=== PATIENT | male | born 1930 | race Caucasian/White ===

== ENCOUNTER 2017-01-15 22:28 | Observation (INO) | payer OTHER ==
[~2017-01-15] VITALS: Ht 165.1 cm; Wt 71.5 kg
--- NOTE | 2017-01-15 23:35 | DIAGNOSTIC IMAGING REPORT ---
PROCEDURE: XR CHEST 1 VIEW INDICATION: CHEST PAIN TECHNIQUE: Portable AP view (2300 hours). COMPARISON: None. FINDINGS: Very large hiatal hernia. Lungs are clear. Status post mediastinotomy and coronary artery bypass graft. Mild cardiomegaly. Mediastinum is of normal size. Thorax is normal IMPRESSION: 1. There are large hiatal hernia. 2. Status post coronary artery bypass graft. 3. Otherwise negative chest.
--- NOTE | 2017-01-15 23:59 | ED NURSING NOTES ---
Clinical Report - Nurses [facility] [address] [place] [address] 01/15/2017 22:30 [id number] Triage time 22:35 Prakash 2016. Acuity: LEVEL 3. Chief Complaint: CHEST PAIN and DISCOMFORT. Alert. FLORI COMA SCORE: Flori Coma Scale: 15- eyes open spontaneously (4); best verbal response- oriented x 4 (5); best motor response- obeys commands (6). --22:49 Jhon Langston R.N. 22:37 01/15/17. BP: 137/73. HR: 74. RR: 16. O2 saturation: 96%. Temp: 96.2 F. Pain level now: 410. Additional comments: Chest Pain. --22:49 Jhon Langston R.N. Weight: 74.8 kg measured. Height/Length: 65 inches Per Patient. BMI: 27.5. --22:41 Jhon Langston R.N. Medications Aspirin Oral (Tablet 81 mg) 1 tablet, daily. --22:38 Jhon Langston R.N. Lisinopril Oral. --22:41 Jhon Langston R.N. Simvastatin Oral. --22:42 Jhon Langston R.N. Omeprazole Oral. Synthroid Oral. --22:42 Jhon Langston R.N. Finasteride Oral. Niacin Oral. --22:43 Jhon Langston R.N. Allergies Quinine. --22:39 Jhon Langston R.N. Medication/allergy information source: the patient. --22:49 Jhon Langston R.N. History Arrived by private vehicle. Historian: patient. Unaccompanied. ( Chest Pain, which started about 3 hours ago). Onset. (about 3 hours ago). 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 PAST MEDICAL HX: Hypertension. Heart disease. Immunizations: up-to-date. SOCIAL HX: Never smoker. No alcohol use or drug use. No infectious disease exposure. ABUSE ASSESSMENT: No report of abuse. FALL RISK ASSESSMENT: Fall risk assessment completed. No fall risk identified. NUTRITIONAL RISK ASSESSMENT: The nutritional risk assessment revealed no deficiencies. FUNCTIONAL ASSESSMENT: Functional assessment: no impairments noted. LEARNING NEEDS ASSESSMENT: The learning needs assessment revealed no barriers. SKIN INTEGRITY ASSESSMENT: Skin integrity risk assessment completed. No skin integrity risk identified. --22:49 Jhon Langston R.N. PROBLEMS: Prostatic Mass. UTI - Urinary Tract Infection. Dysuria. Urinary Retention. Immunizations. Hematuria. Herniated esophagus. Retention of KCl. Hypertension. Prostate Disease. Reflux. --22:46 Jhon Langston R.N. ADDITIONAL SURGERIES: Bypass surgery. Cataract Surgery. Hemorrhoidectomy. Hernia Repair. Removal polyps of colon. --22:46 Jhon Langston R.N. Interventions ID band on patient. To treatment room. --22:49 Jhon Langston R.N. PHYSICAL ASSESSMENT Ambulatory to room. GENERAL / NEURO / PSYCH: Alert. Oriented X 4. Appears in pain. HEENT: Mucous membranes are pink. RESPIRATORY: Respirations not labored. Breath sounds within normal limits. CVS: Normal sinus rhythm noted. GI / : Abdomen soft. EXTREMITIES: No lower extremity edema. SKIN: Skin is warm and dry. Normal skin turgor. --22:50 Jhon Langston R.N. NURSING PROGRESS NOTES Patient gowned. Reassurance given. Patient identifiers checked. Call light placed in reach. Side rails up. Bed placed in lowest position. Brakes of bed on. Patient ready for evaluation- chart flagged and ED physician notified. --22:50 Jhon Langston R.N. 22:36 01/15/2017 Aspirin PO Tablets 325 mg given. Allergies verified and confirmed 5 rights. --22:51 Jhon Langston R.N. 22:46 01/15/2017 Site #1 started via IV in the right forearm with an 20g angiocath; one attempt. Blood drawn: rainbow set. Labeled in the presence of the patient. Saline lock flushed with 10 mL saline. --22:51 Jhon Langston R.N. 22:53 01/15/2017 Nitroglycerin SL Tablets 0.4 mg given. Allergies verified and confirmed 5 rights. --22:53 Jhon Langston R.N. 22:37. EKG was performed by a tech and shown to the ED physician. --22:58 Marika Ferrer, ER Tech1 23:34 01/15/17. BP: 104/54. HR: 68. RR: 16. O2 saturation: 98% on nasal cannula at 2 liters/minute. Pain level now: 0/10. --23:35 Jhon Langston R.N. 00:13 01/16/2017 NITROGLYCERIN PASTE Topical Paste 0.5 inch. Applied to the left chest. Allergies verified and confirmed 5 rights. --00:13 Jhon Langston R.N. 00:30 01/16/17. BP: 105/54. HR: 53. RR: 18. O2 saturation: 98% on nasal cannula at 2 liters/minute. Pain level now: 0/10. --04:59 Jhon Langston R.N. 00:45 01/16/2017 Site #[address] upon admission; patent, no pain and no signs of infection or infiltration. Good blood return present. Converted to saline lock and flushed; flushes easily. --05:01 Jhon Langston R.N. DISPOSITION / DISCHARGE 00:31 01/16/17. BP: 105/54. HR: 52. RR: 16. O2 saturation: 98% on nasal cannula at 2 liters/minute. Pain level now: 0/10. --00:32 Jhon Langston R.N. Departure time: 44. --00:40 Jhon Langston R.N. Admitted to Acute Care. --04:17 Jhon Langston R.N. 00:31 01/16/17. Temp: 98.7 F (oral). --04:17 Jhon Langston R.N. 00:45. Transported via stretcher by transport team with monitor and O2 (IV access). Report was given to a nurse via a phone call. Report included patient's care, treatment, medications, reviewed medication reconcilliation, and condition (including any recent changes or anticipated changes). All questions were answered. Report was acknowledged and care was transferred. Patient's personal items; items were placed in belongings bag and transported with the patient. --04:19 Jhon Langston R.N. Locked/Released at 01/16/2017 5:02 by Jhon Langston R.N.
--- NOTE | 2017-01-15 23:59 | ED CLINICAL REPORT ---
Clinical Report - Physicians/Mid Levels [facility] [address] [place] [address] 01/15/2017 22:30 Patient: BLU STARK Time Seen: 22:42 Prakash 18 2016. Arrived- By private vehicle. Historian- patient. CPT: ER phys charges level 5 plus (#[id number]). EKG interpretation (#[id number]). HISTORY OF PRESENT ILLNESS Chief Complaint: CHEST PAIN and DISCOMFORT. At its maximum, severity described as moderate and 4 / 10. When seen in the E.D., severity described as moderate and 4 / 10. Modifying factors. Not worsened by anything. Not relieved by anything. It is described as pressure and dull and it is described as located in the central chest area. 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 Onset during light activity. No nausea, vomiting, difficulty breathing or diaphoresis. Similar symptoms previously: None. Recent medical care: Not recently seen/assessed. REVIEW OF SYSTEMS No fever, chills, cough, pedal edema or calf pain. No fainting episodes or episodes, sore throat or throat or abdominal pain. No black stools, difficulty with urination or urination or skin rash or rash. No enlarged lymph nodes, chills, fever, nasal congestion or epistaxis. No palpitations or dizziness. The patient has had fatigue and weakness. No difficulty walking. All systems otherwise negative, except as recorded above. PAST HISTORY Hiatal hernia CABG 2000, no SL NTG since that time. NO ETT in last 3 years. Medications: Finasteride Oral. Niacin Oral. Omeprazole Oral. Synthroid Oral. Simvastatin Oral. Lisinopril Oral. Aspirin Oral (Tablet 81 mg) 1 tablet, daily. Allergies: Quinine. SOCIAL HISTORY Never smoker. ADDITIONAL NOTES The nursing notes have been reviewed. PHYSICAL EXAM Vital Signs: 01/15/2017 22:37 BP: 137/73. HR: 74. RR: 16. O2 saturation: 96%. Temp: 96.2 F. Pain level now: 4/10. Appearance: Alert. Anxious. Patient in mild distress. Eyes: Pupils equal, round and reactive to light. Eyes normal inspection. ENT: Ears normal. Nose normal. Pharynx normal. Neck: Normal inspection. Neck supple. CVS: Normal heart rate and rhythm. Heart sounds normal. Pulses normal. Respiratory: No respiratory distress. Breath sounds normal. Chest nontender. Abdomen: Soft and nontender. Bowel sounds normal. Back: Normal external inspection. Skin: Skin warm. Normal skin color. No rash. Extremities: Extremities exhibit normal ROM. No lower extremity edema. Neuro: Oriented X 3. No motor deficit. No sensory deficit. LABS, X-RAYS, AND EKG EKG: Normal sinus rhythm. Normal P waves. RBBB. Non-specific ST segment / T wave abnormalities. EKG unchanged when compared with prior EKG. The study has been interpreted contemporaneously. The study has been independently viewed by me. The EKG appears to be a good tracing. Chest X-ray: No acute disease. (Large hiatal hernia). Views: AP (portable). Technique: good. The X-rays were independently viewed by me and interpreted contemporaneously by me. Laboratory Tests: CBC w Diff: (DAI: 01/15/2017 22:40) ( [facility] 01/15/2017 23:10) Final results Test Result Flag Units (Reference) WHITE BLOOD COUNT 6.7 K/uL (4.5-11.5) RED BLOOD COUNT 5.01 M/uL (4.50-5.90) HEMOGLOBIN 14.7 gm/dL (13.5-17.5) HEMATOCRIT 44.6 % (41.0-53.0) MEAN CELL VOLUME 89 fL (80-100) MEAN CORPUSCULAR HGB 29 pg (26-34) MEAN CORPUSCULAR HGB CONC 33 g/dL (31-37) RED CELL DISTRIBUTION WIDTH 13.4 % (11.6-14.8) PLATELET COUNT 153 K/uL (150-400) LYMPH % 31.0 % (25-40) MONO % 5.9 % (3-14) GRANULOCYTE % 63.1 BNP: (DAI: 01/15/2017 22:40) ( [facility] 01/15/2017 23:34) Final results Test Result Flag Units (Reference) B-TYPE NATRIURETIC PEPTIDE 111 H pg/ml (5-100) Lipase: (DAI: 01/15/2017 22:40) ( [facility] 01/15/2017 23:24) Final results Test Result Flag Units (Reference) LIPASE 350 U/L (73-393) AMYLASE 54 U/L (25-115) CHEM 13 PANEL: (DAI: 01/15/2017 22:40) ( MsgRcvd 01/15/2017 23:26) Final results Test Result Flag Units (Reference) GLUCOSE 121 H mg/dL (70-110) BUN 46 H mg/dL (7-18) CREATININE 1.5 H mg/dL (0.6-1.3) Estimated GFR 46.84 mL/min Estimated GFR- 56.76 mL/min Note: Persistent reduction over 3 months in eGFR<60 mL/min/1.73 m2 defines CKD. Patients with eGFR values>=60 mL/min/1.73 m2 may also have CKD if evidence ofpersistent proteinuria. Additional information may be foundat www.kidney.org. SODIUM 132 L mmol/L (136-145) POTASSIUM 4.6 mmol/L (3.5-5.1) CHLORIDE 103 mmol/L (98-107) CARBON DIOXIDE 24 mmol/L (21-32) CALCIUM 8.8 mg/dL (8.5-10.1) TOTAL PROTEIN 7.7 g/dL (6.4-8.2) ALBUMIN 3.8 g/dL (3.3-5.0) BILIRUBIN, TOTAL 0.4 mg/dL (0.0-1.0) ALKALINE PHOSPHATASE 82 U/L (46-116) AST (SGOT) 27 U/L (15-37) ALT (SGPT) 40 U/L (12-78) MAGNESIUM 2.1 mg/dL (1.8-2.4) CPK 209 U/L (24-260) TROPONIN I <0.05 L ng/mL (0.00-1.5) TROPONIN REFERENCE RANGE:<0.1 NEGATIVE0.1-1.5 INDETERMINANT>1.5 POSITIVE . PROGRESS AND PROCEDURES Course of Care: ASA 325 mg po 23:43 01/15/17. Symptom free after 1 NTG SL. NTG paste 08/01 " Patient is stable. The patient's symptoms are now gone. Discussed case with on-call health care provider, (Bryan). Reviewed test results. Agreed upon treatment plan and decision to admit. Health care provider will see patient in ED. Patient/family counseled. Old medical records ordered. Disposition orders written. Disposition: Admitted to Acute Care. CLINICAL IMPRESSION Unstable angina .12 lead EKG performed. (Electronically signed by Yamil Laughlin MD 01/16/2017 9:49)
--- NOTE | 2017-01-15 23:59 | ED CLINICAL REPORT ---
Clinical Report - Physicians/Mid Levels [facility] [address] [place] [address] 01/15/2017 22:30 Patient: BLU STARK Time Seen: 22:42 Prakash 18 2016. Arrived- By private vehicle. Historian- patient. CPT: ER phys charges level 5 plus (#[id number]). EKG interpretation (#[id number]). HISTORY OF PRESENT ILLNESS Chief Complaint: CHEST PAIN and DISCOMFORT. At its maximum, severity described as moderate and 4 / 10. When seen in the E.D., severity described as moderate and 4 / 10. Modifying factors. Not worsened by anything. Not relieved by anything. It is described as pressure and dull and it is described as located in the central chest area. 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 Onset during light activity. No nausea, vomiting, difficulty breathing or diaphoresis. Similar symptoms previously: None. Recent medical care: Not recently seen/assessed. REVIEW OF SYSTEMS No fever, chills, cough, pedal edema or calf pain. No fainting episodes or episodes, sore throat or throat or abdominal pain. No black stools, difficulty with urination or urination or skin rash or rash. No enlarged lymph nodes, chills, fever, nasal congestion or epistaxis. No palpitations or dizziness. The patient has had fatigue and weakness. No difficulty walking. All systems otherwise negative, except as recorded above. PAST HISTORY Hiatal hernia CABG 2000, no SL NTG since that time. NO ETT in last 3 years. Medications: Finasteride Oral. Niacin Oral. Omeprazole Oral. Synthroid Oral. Simvastatin Oral. Lisinopril Oral. Aspirin Oral (Tablet 81 mg) 1 tablet, daily. Allergies: Quinine. SOCIAL HISTORY Never smoker. ADDITIONAL NOTES The nursing notes have been reviewed. PHYSICAL EXAM Vital Signs: 01/15/2017 22:37 BP: 137/73. HR: 74. RR: 16. O2 saturation: 96%. Temp: 96.2 F. Pain level now: 4/10. Appearance: Alert. Anxious. Patient in mild distress. Eyes: Pupils equal, round and reactive to light. Eyes normal inspection. ENT: Ears normal. Nose normal. Pharynx normal. Neck: Normal inspection. Neck supple. CVS: Normal heart rate and rhythm. Heart sounds normal. Pulses normal. Respiratory: No respiratory distress. Breath sounds normal. Chest nontender. Abdomen: Soft and nontender. Bowel sounds normal. Back: Normal external inspection. Skin: Skin warm. Normal skin color. No rash. Extremities: Extremities exhibit normal ROM. No lower extremity edema. Neuro: Oriented X 3. No motor deficit. No sensory deficit. LABS, X-RAYS, AND EKG EKG: Normal sinus rhythm. Normal P waves. RBBB. Non-specific ST segment / T wave abnormalities. EKG unchanged when compared with prior EKG. The study has been interpreted contemporaneously. The study has been independently viewed by me. The EKG appears to be a good tracing. Chest X-ray: No acute disease. (Large hiatal hernia). Views: AP (portable). Technique: good. The X-rays were independently viewed by me and interpreted contemporaneously by me. Laboratory Tests: CBC w Diff: (DAI: 01/15/2017 22:40) ( [facility] 01/15/[facility] 23:10) Final results Test Result Flag Units (Reference) WHITE BLOOD COUNT 6.7 K/uL (4.5-11.5) RED BLOOD COUNT 5.01 M/uL (4.50-5.90) HEMOGLOBIN 14.7 gm/dL (13.5-17.5) HEMATOCRIT 44.6 % (41.0-53.0) MEAN CELL VOLUME 89 fL (80-100) MEAN CORPUSCULAR HGB 29 pg (26-34) MEAN CORPUSCULAR HGB CONC 33 g/dL (31-37) RED CELL DISTRIBUTION WIDTH 13.4 % (11.6-14.8) PLATELET COUNT 153 K/uL (150-400) LYMPH % 31.0 % (25-40) MONO % 5.9 % (3-14) GRANULOCYTE % 63.1 BNP: (DAI: 01/15/2017 22:40) ( [facility] 01/15/2017 23:34) Final results Test Result Flag Units (Reference) B-TYPE NATRIURETIC PEPTIDE 111 H pg/ml (5-100) Lipase: (DAI: 01/15/2017 22:40) ( Ndg[facility]cv[facility] 01/15/2017 23:24) Final results Test Result Flag Units (Reference) LIPASE 350 U/L (73-393) AMYLASE 54 U/L (25-115) CHEM 13 PANEL: (DAI: 01/15/2017 22:40) ( MsgRcvd 01/15/2017 23:26) Final results Test Result Flag Units (Reference) GLUCOSE 121 H mg/dL (70-110) BUN 46 H mg/dL (7-18) CREATININE 1.5 H mg/dL (0.6-1.3) Estimated GFR 46.84 mL/min Estimated GFR- 56.76 mL/min Note: Persistent reduction over 3 months in eGFR<60 mL/min/1.73 m2 defines CKD. Patients with eGFR values>=60 mL/min/1.73 m2 may also have CKD if evidence ofpersistent proteinuria. Additional information may be foundat www.kidney.org. SODIUM 132 L mmol/L (136-145) POTASSIUM 4.6 mmol/L (3.5-5.1) CHLORIDE 103 mmol/L (98-107) CARBON DIOXIDE 24 mmol/L (21-32) CALCIUM 8.8 mg/dL (8.5-10.1) TOTAL PROTEIN 7.7 g/dL (6.4-8.2) ALBUMIN 3.8 g/dL (3.3-5.0) BILIRUBIN, TOTAL 0.4 mg/dL (0.0-1.0) ALKALINE PHOSPHATASE 82 U/L (46-116) AST (SGOT) 27 U/L (15-37) ALT (SGPT) 40 U/L (12-78) MAGNESIUM 2.1 mg/dL (1.8-2.4) CPK 209 U/L (24-260) TROPONIN I <0.05 L ng/mL (0.00-1.5) TROPONIN REFERENCE RANGE:<0.1 NEGATIVE0.1-1.5 INDETERMINANT>1.5 POSITIVE . PROGRESS AND PROCEDURES Course of Care: ASA 325 mg po 23:43 01/15/17. Symptom free after 1 NTG SL. NTG paste 08/01 " Patient is stable. The patient's symptoms are now gone. Discussed case with on-call health care provider, (Bryan). Reviewed test results. Agreed upon treatment plan and decision to admit. Health care provider will see patient in ED. Patient/family counseled. Old medical records ordered. Disposition orders written. Disposition: Admitted to Acute Care. CLINICAL IMPRESSION Unstable angina .12 lead EKG performed. (Electronically signed by aYmil Laughlin MD 01/16/2017 9:49)
--- NOTE | 2017-01-15 23:59 | ED ORDER SUMMARY ---
..... Patient: BLU STARK OrderSheet [facility] VisitID: [id number] [place] [address] 87y, M Registration Date/Time: 01/15/2017 ORDER SHEET Weight: 74.8 kg (measured) Allergies: Quinine GENERAL ORDERS: Chest 1V Urgent (22:48 01/15/2017 Anil EAST) (Ack 22:50 AMcQuoid ER Tech1) (22:57 AMcQuoid ER Tech1) Founder And President (Continuous) (22:48 01/15/2017 Anil EAST) (Ack 22:50 AMcQuoid ER Tech1) (22:50 AMcQuoid ER Tech1) Cardiac Panel Stat (22:49 01/15/2017 Anil EAST) (Ack 22:50 AMcQuoid ER Tech1) (22:51 omanelli R.N.) BNP Urgent (22:49 01/15/2017 Anil EAST) (Ack 22:50 AMcQuoid ER Tech1) (22:51 JRomanelli R.N.) Lipase Urgent (22:49 01/15/2017 Anil EAST) (Ack 22:50 AMcQuoid ER Tech1) (22:51 JRomanelli R.N.) Amylase Urgent (22:49 01/15/2017 Anil EAST) (Ack 22:50 AMcQuoid ER Tech1) (22:51 JRomanelli R.N.) Oxygen (2 L/min) (NC) (22:49 01/15/2017 Anil EAST) (Ack 22:50 AMcQuoid ER Tech1) (22:50 AMcQuoid ER Tech1) Pulse oximeter (22:49 01/15/2017 Anil EAST) (Ack 22:50 AMcQuoid ER Tech1) (22:50 AMcQuoid ER Tech1) EKG - ER Stat (22:49 01/15/2017 Anil EAST) (Ack 22:50 AMcQuoid ER Tech1) (22:50 AMcQuoid ER Tech1) MEDICATION ORDERS: Aspirin PO 325 mg (NOW) (22:49 01/15/2017 Anil EAST) (22:51 Andreina Carrillo.NSimon) NitroGLYCERIN SL 0.4 mg (x3 PRN Chest Pain) (22:49 01/15/2017 Anil EAST) (22:53 Andreina Carrillo.N.) NitroGLYCERIN Paste Topical 0.5 in. (NOW) (23:51 01/15/2017 Anil EAST) (0:13 Andreina Carrillo.N.) IV FLUIDS: IV Saline Lock (22:49 01/15/2017 Anil EAST) (22:51 Andreina Carrillo.N.) ORDER SHEET NOTES: [Electronically signed by Jhon Langston R.N. (05:02 01/16/2017)] [Electronically signed by Yamil Laughlin MD (09:49 01/16/2017)] [Electronically locked/signed by Jhon Langston R.N. (05:02 01/16/2017)]
--- NOTE | 2017-01-15 23:59 | ED NURSING NOTES ---
Clinical Report - Nurses [facility] [address] [place] [address] 01/15/2017 22:30 [id number] Triage time 22:35 Prakash 2016. Acuity: LEVEL 3. Chief Complaint: CHEST PAIN and DISCOMFORT. Alert. FLORI COMA SCORE: Flori Coma Scale: 15- eyes open spontaneously (4); best verbal response- oriented x 4 (5); best motor response- obeys commands (6). --22:49 Jhon Langston R.N. 22:37 01/15/17. BP: 137/73. HR: 74. RR: 16. O2 saturation: 96%. Temp: 96.2 F. Pain level now: 410. Additional comments: Chest Pain. --22:49 Jhon Langston R.N. Weight: 74.8 kg measured. Height/Length: 65 inches Per Patient. BMI: 27.5. --22:41 Jhon Langston R.N. Medications Aspirin Oral (Tablet 81 mg) 1 tablet, daily. --22:38 Jhon Langston R.N. Lisinopril Oral. --22:41 Jhon Langston R.N. Simvastatin Oral. --22:42 Jhon Langston R.N. Omeprazole Oral. Synthroid Oral. --22:42 Jhon Langston R.N. Finasteride Oral. Niacin Oral. --22:43 Jhon Langston R.N. Allergies Quinine. --22:39 Jhon Langston R.N. Medication/allergy information source: the patient. --22:49 Jhon Langston R.N. History Arrived by private vehicle. Historian: patient. Unaccompanied. ( Chest Pain, which started about 3 hours ago). Onset. (about 3 hours ago). 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 PAST MEDICAL HX: Hypertension. Heart disease. Immunizations: up-to-date. SOCIAL HX: Never smoker. No alcohol use or drug use. No infectious disease exposure. ABUSE ASSESSMENT: No report of abuse. FALL RISK ASSESSMENT: Fall risk assessment completed. No fall risk identified. NUTRITIONAL RISK ASSESSMENT: The nutritional risk assessment revealed no deficiencies. FUNCTIONAL ASSESSMENT: Functional assessment: no impairments noted. LEARNING NEEDS ASSESSMENT: The learning needs assessment revealed no barriers. SKIN INTEGRITY ASSESSMENT: Skin integrity risk assessment completed. No skin integrity risk identified. --22:49 Jhon Langston R.N. PROBLEMS: Prostatic Mass. UTI - Urinary Tract Infection. Dysuria. Urinary Retention. Immunizations. Hematuria. Herniated esophagus. Retention of KCl. Hypertension. Prostate Disease. Reflux. --22:46 Jhon Langston R.N. ADDITIONAL SURGERIES: Bypass surgery. Cataract Surgery. Hemorrhoidectomy. Hernia Repair. Removal polyps of colon. --22:46 Jhon Langston R.N. Interventions ID band on patient. To treatment room. --22:49 Jhon Langston R.N. PHYSICAL ASSESSMENT Ambulatory to room. GENERAL / NEURO / PSYCH: Alert. Oriented X 4. Appears in pain. HEENT: Mucous membranes are pink. RESPIRATORY: Respirations not labored. Breath sounds within normal limits. CVS: Normal sinus rhythm noted. GI / : Abdomen soft. EXTREMITIES: No lower extremity edema. SKIN: Skin is warm and dry. Normal skin turgor. --22:50 Jhon Langston R.N. NURSING PROGRESS NOTES Patient gowned. Reassurance given. Patient identifiers checked. Call light placed in reach. Side rails up. Bed placed in lowest position. Brakes of bed on. Patient ready for evaluation- chart flagged and ED physician notified. --22:50 Jhon Langston R.N. 22:36 01/15/2017 Aspirin PO Tablets 325 mg given. Allergies verified and confirmed 5 rights. --22:51 Jhon Langston R.N. 22:46 01/15/2017 Site #1 started via IV in the right forearm with an 20g angiocath; one attempt. Blood drawn: rainbow set. Labeled in the presence of the patient. Saline lock flushed with 10 mL saline. --22:51 Jhon Langston R.N. 22:53 01/15/2017 Nitroglycerin SL Tablets 0.4 mg given. Allergies verified and confirmed 5 rights. --22:53 Jhon Langston R.N. 22:37. EKG was performed by a tech and shown to the ED physician. --22:58 Marika Ferrer, ER Tech1 23:34 01/15/17. BP: 104/54. HR: 68. RR: 16. O2 saturation: 98% on nasal cannula at 2 liters/minute. Pain level now: 0/10. --23:35 Jhon Langston R.N. 00:13 01/16/2017 NITROGLYCERIN PASTE Topical Paste 0.5 inch. Applied to the left chest. Allergies verified and confirmed 5 rights. --00:13 Jhon Langston R.N. 00:30 01/16/17. BP: 105/54. HR: 53. RR: 18. O2 saturation: 98% on nasal cannula at 2 liters/minute. Pain level now: 0/10. --04:59 Jhon Langston R.N. 00:45 01/16/2017 Site #[address] upon admission; patent, no pain and no signs of infection or infiltration. Good blood return present. Converted to saline lock and flushed; flushes easily. --05:01 Jhon Langston R.N. DISPOSITION / DISCHARGE 00:31 01/16/17. BP: 105/54. HR: 52. RR: 16. O2 saturation: 98% on nasal cannula at 2 liters/minute. Pain level now: 0/10. --00:32 Jhon Langston R.N. Departure time: 44. --00:40 Jhon Langston R.N. Admitted to Acute Care. --04:17 Jhon Langston R.N. 00:31 01/16/17. Temp: 98.7 F (oral). --04:17 Jhon Langston R.N. 00:45. Transported via stretcher by transport team with monitor and O2 (IV access). Report was given to a nurse via a phone call. Report included patient's care, treatment, medications, reviewed medication reconcilliation, and condition (including any recent changes or anticipated changes). All questions were answered. Report was acknowledged and care was transferred. Patient's personal items; items were placed in belongings bag and transported with the patient. --04:19 Jhon Langston R.N. Locked/Released at 01/16/2017 5:02 by Jhon Langston R.N.
--- NOTE | 2017-01-15 23:59 | ED ORDER SUMMARY ---
..... Patient: BLU STARK OrderSheet [facility] VisitID: [id number] [place] [address] 87y, M Registration Date/Time: 01/15/2017 ORDER SHEET Weight: 74.8 kg (measured) Allergies: Quinine GENERAL ORDERS: Chest 1V Urgent (22:48 01/15/2017 [facility]) (Ack 22:50 AMcQuoid ER Tech1) (22:57 AMcQuoid ER Tech1) Rn Home Health (Continuous) (22:48 01/15/2017 [facility]) (Ack 22:50 AMcQuoid ER Tech1) (22:50 AMcQuoid ER Tech1) Cardiac Panel Stat (22:49 01/15/2017 [facility]) (Ack 22:50 AMcQuoid ER Tech1) (22:51 omanelli R.N.) BNP Urgent (22:49 01/15/2017 [facility]) (Ack 22:50 AMcQuoid ER Tech1) (22:51 JRomanelli R.N.) Lipase Urgent (22:49 01/15/2017 [facility]) (Ack 22:50 AMcQuoid ER Tech1) (22:51 JRomanelli R.N.) Amylase Urgent (22:49 01/15/2017 [facility]) (Ack 22:50 AMcQuoid ER Tech1) (22:51 JRomanelli R.N.) Oxygen (2 L/min) (NC) (22:49 01/15/2017 [facility]) (Ack 22:50 AMcQuoid ER Tech1) (22:50 AMcQuoid ER Tech1) Pulse oximeter (22:49 01/15/2017 [facility]) (Ack 22:50 AMcQuoid ER Tech1) (22:50 AMcQuoid ER Tech1) EKG - ER Stat (22:49 01/15/2017 [facility]) (Ack 22:50 AMcQuoid ER Tech1) (22:50 AMcQuoid ER Tech1) MEDICATION ORDERS: Aspirin PO 325 mg (NOW) (22:49 01/15/2017 [facility]) (22:51 Andreina Carrillo.NSimon) NitroGLYCERIN SL 0.4 mg (x3 PRN Chest Pain) (22:49 01/15/2017 [facility]) (22:53 Andreina Carrillo.N.) NitroGLYCERIN Paste Topical 0.5 in. (NOW) (23:51 01/15/2017 [facility]) (0:13 Andreina Carrillo.N.) IV FLUIDS: IV Saline Lock (22:49 01/15/2017 [facility]) (22:51 Andreina Carrillo.N.) ORDER SHEET NOTES: [Electronically signed by Jhon Langston R.N. (05:02 01/16/2017)] [Electronically signed by Yamil Laughlin MD (09:49 01/16/2017)] [Electronically locked/signed by Jhon Langston R.N. (05:02 01/16/2017)]
[2017-01-16 01:15] VITALS: BP 100/52
--- NOTE | 2017-01-16 02:06 | Progress Note ---
Subjective General Admission History and Physical Examination Status: Acute Care Observation Patient Name: Brayden Macario Admission Date: Primary Care Provider: Quintin Prather Attending Physician: Barrett Alexander M.D. Admitting Physician: Robe Adams Code Status: Full Code Room: 209 SUBJECTIVE Historian: Patient Reliability: good Chief Complaint: Mid Sternal Chest pain/pressure History of Present Illness: The patient is an 87-year-old white male with a significant past medical history of CAD (4 Vsl CABG 2000 and angioplasty 2000), hypertension, hyperlipidemia, BPH who presented to [facility] emergency department on the day of admission secondary to complaints of chest pain.. Patient reported of initial pain in the chest nearly 3 hours prior to his arrival to the ED.He states that he actually drove himself to the hospital due the ongoing chest pain The [facility] ED evaluation was consistent with acute coronary syndrome. Patient received nitroglycerin sublingual during the subsequent evaluations which gave significant relief.. Labs were relatively unremarkable. Patient is admitted for ACS to the hospitalist. He reports that the nitroglycerin was therapeutic. Patient no longer complaining of chest pain. Secondary to the above the patient is admitted by Robe Adams M.D., for further evaluation and treatment. Patient does report of mild cognitive decline; claiming that he now takes more time to remember certain names or places.. He is independant at home. Patient has been for multiple years. 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 Patient normally drives himself to most destinations. Patient does have 2 family members nearby. Patient has daughter and son in close proximity. 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 Patient reports that he would wish to BE fully resuscitated. All subsequent discussions should go through his son. Patient has his record on file. PAST MEDICAL HISTORY Illnesses: 1 . Hypertension 2 BPH with istory of urinary retention. 3. Hyperlipidemia 4. Coronary artery disease. Allergies: 1. Quinine Medications: 1. Lisinopril 20 mg daily 2. Simvastatin 40 mg daily 3. Omeprazole 20 mg 1 tablet twice daily 4. Synthroid 50 g 1 times daily 5. Finasteride 5 mg 1 time daily 6. Low-dose aspirin daily health 7. Niacin 500 mg held Surgery: 1. Four-vessel CABG in 2000 2. Hemorrhoidectomy 3. Right inguinal hernia surgical repair 4. Colonoscopy next 5. Angioplasty Injuries: 1. No significant injuries reported Hospitalizations: 1. Previous hospitalizations for above noted procedure and conditions. FAMILY HISTORY Parents: 1. Father, coronary artery disease mid 50s, 2. Mother, coronary artery disease mid 50s Siblings: 1. Brother is living Children: 1. Adopted children Other significant family history: CAD SOCIAL HISTORY 1. Marital Status: 2. Yarsanism: Not asked 3. Education: High school and college education 4. 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 Occupational health exposures: Unknown HABITS 1. Tobacco: History of smoking 2. Drugs: None 3. Alcohol: No alcohol use since 1990 HEALTH SUPERVISION Item/Test Dr. Reyes's records from [facility] IMMUNIZATIONS: 1. Pneumococcal: up to date 2. Influenza: uknown 3. Tetanus: uknown. ADVANCED DIRECTIVES: 1. Living well: Available in 2. POLST: None 3. Code Status: Full code 4. 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 Patient wants his son to be called if there is a loss of consciousness or changes in mental status 5. Donor card: Unknown REVIEW OF SYSTEMS Remarkable for those things stated in the history of present illness and past medical history. ROS Constitutional Denies: Fever, Chills, Sweats. Eyes Denies: Vision Change. Respiratory Denies: SOB w/exertion, Wheezing. Cardiovascular Other (chest pain). Gastrointestinal Denies: Diarrhea. Genitourinary Denies: Frequency. Skin Denies: Lesions. Neurological Denies: Incoordination, Change in speech. Physical Exam Vital Signs / I&Os Vital Signs Date Time Temp Pulse Resp B/P Pulse O2 O2 Flow FiO2 Ox Delivery Rate 01/16 0115 98.1 53 18 100/52 98 Nasal 2.0 Cannula General Appearance Alert, Oriented X3, Cooperative, No acute distress HEENT Atraumatic, EOMI, Moist mucous membranes Lungs Clear to auscultation Neck Supple, No JVD Cardiovascular Normal S1 and S2, irregular regular Abdomen Soft, No tenderness Extremities No clubbing, No edema, Normal pulses Skin No Rashes Neurological Normal speech, Reflexes 2+ and equal Psych/Mental Status Mental status normal, Mood normal LAB Results Laboratory Tests 01/15 01/15 01/15 2240 2240 2240 Chemistry Plasma Sodium (136 - 145 mmol/L) 132 Plasma Potassium (3.5 - 5.1 mmol/L) 4.6 Plasma Chloride (98 - 107 mmol/L) 103 CO2 (Enzymatic) (21 - 32 mmol/L) 24 BUN (7 - 18 mg/dL) 46 Creatinine (0.6 - 1.3 mg/dL) 1.5 Est GFR ( Amer) (mL/min) 56.76 Est GFR (Non-Af Amer) (mL/min) 46.84 Glucose (70 - 110 mg/dL) 121 Plasma Calcium (8.5 - 10.1 mg/dL) 8.8 Plasma Magnesium (1.8 - 2.4 mg/dL) 2.1 Total Bilirubin (0.0 - 1.0 mg/dL) 0.4 AST (15 - 37 U/L) 27 ALT (12 - 78 U/L) 40 Alkaline Phosphatase (46 - 116 U/L) 82 Creatine Kinase (24 - 260 U/L) 209 Troponin (0.00 - 1.5 ng/mL) <0.05 B-Natriuretic Peptide (5 - 100 pg/ml) 111 Total Protein (6.4 - 8.2 g/dL) 7.7 Albumin (3.3 - 5.0 g/dL) 3.8 Amylase (25 - 115 U/L) 54 Lipase (73 - 393 U/L) 350 Hematology WBC (4.5 - 11.5 K/uL) 6.7 RBC (4.50 - 5.90 M/uL) 5.01 Hgb (13.5 - 17.5 gm/dL) 14.7 Hct (41.0 - 53.0 %) 44.6 MCV (80 - 100 fL) 89 MCH (26 - 34 pg) 29 RDW (11.6 - 14.8 %) 13.4 Gran % 63.1 Lymph % (Auto) (25 - 40 %) 31.0 [place] % (Auto) (3 - 14 %) 5.9 Plt Count, EDTA (150 - 400 K/uL) 153 PUBS MCHC (31 - 37 g/dL) 33 Imaging EKG: Normal sinus rhythm. Normal P waves. RBBB. Non-specific ST segment / T wave abnormalities. EKG unchanged when compared with prior EKG. Chest X-ray: No acute disease. (Large hiatal hernia). Views: AP (portable). Assessment and Plan Problem List 1. Unstable angina pectoris Plan 87-year-old with atypical chest pain admission to acute care for observation Patient was given nitroglycerin EEG which abated the pain. Follow-up H&H in a.m. Following cardiac enzymes throughout the morning and into the afternoon Patient is brisk for coronary disease secondary to previous record a CABG. Pain control is available if needed. Consider Lexiscan nuclear stress test and nuclear image; after ruling out. 2. Chest pain, rule out acute myocardial infarction Plan Here for rule out of ischemic heart disease Following telemetry Cardiac enzymes serial panel 325 mg aspirin daily Blood pressure control. Follow-up with primary care provider may need to see animal damage control agent as an outpatient Nuclear stress test ordered 3. HLD (hyperlipidemia) Plan History of hyperlipidemia. Patient is on simvastatin 40 mg daily. Continue with Lipitor 40 mg daily During lipid profile from this morning 4. HTN (hypertension) Plan Blood pressure appears to be well controlled on single agent JESICA inhibitor. We'll continue with both including the nitroglycerin. 5. BPH (benign prostatic hyperplasia) Plan Patient is followed by Dr. Magdaleno for urological concerns. Continue the finasteride as discussed. He will need follow-up with Dr. Magdaleno discharged 6. Hypothyroid Plan History of hypothyroid. Continue with Synthroid 50 g daily. Recheck thyroid panel in a.m. labs. Current status: Fair Anticipated discharge date: 24 hours Anticipated discharge placement: Home with home health Patient care time: Time spent in chart review, patient interview, physical exam, CPOE, and care documentation: 70 minutes Visit to patient today: 2 Complexity of care: Mild E&M Codes Admission: Obsv-Comp/High/[id number]
--- NOTE | 2017-01-16 02:06 | Progress Note ---
Subjective General Admission History and Physical Examination Status: Acute Care Observation Patient Name: Brayden Macario Admission Date: Primary Care Provider: Quintin Prather Attending Physician: Barrett Alexander M.D. Admitting Physician: Robe Adams Code Status: Full Code Room: 209 SUBJECTIVE Historian: Patient Reliability: good Chief Complaint: Mid Sternal Chest pain/pressure History of Present Illness: The patient is an 87-year-old white male with a significant past medical history of CAD (4 Vsl CABG 2000 and angioplasty 2000), hypertension, hyperlipidemia, BPH who presented to [facility] emergency department on the day of admission secondary to complaints of chest pain.. Patient reported of initial pain in the chest nearly 3 hours prior to his arrival to the ED.He states that he actually drove himself to the hospital due the ongoing chest pain The [facility] ED evaluation was consistent with acute coronary syndrome. Patient received nitroglycerin sublingual during the subsequent evaluations which gave significant relief.. Labs were relatively unremarkable. Patient is admitted for ACS to the hospitalist. He reports that the nitroglycerin was therapeutic. Patient no longer complaining of chest pain. Secondary to the above the patient is admitted by Robe Adams M.D., for further evaluation and treatment. Patient does report of mild cognitive decline; claiming that he now takes more time to remember certain names or places.. He is independant at home. Patient has been for multiple years. 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 Patient normally drives himself to most destinations. Patient does have 2 family members nearby. Patient has daughter and son in close proximity. 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 Patient reports that he would wish to BE fully resuscitated. All subsequent discussions should go through his son. Patient has his record on file. PAST MEDICAL HISTORY Illnesses: 1 . Hypertension 2 BPH with istory of urinary retention. 3. Hyperlipidemia 4. Coronary artery disease. Allergies: 1. Quinine Medications: 1. Lisinopril 20 mg daily 2. Simvastatin 40 mg daily 3. Omeprazole 20 mg 1 tablet twice daily 4. Synthroid 50 g 1 times daily 5. Finasteride 5 mg 1 time daily 6. Low-dose aspirin daily health 7. Niacin 500 mg held Surgery: 1. Four-vessel CABG in 2000 2. Hemorrhoidectomy 3. Right inguinal hernia surgical repair 4. Colonoscopy next 5. Angioplasty Injuries: 1. No significant injuries reported Hospitalizations: 1. Previous hospitalizations for above noted procedure and conditions. FAMILY HISTORY Parents: 1. Father, coronary artery disease mid 50s, 2. Mother, coronary artery disease mid 50s Siblings: 1. Brother is living Children: 1. Adopted children Other significant family history: CAD SOCIAL HISTORY 1. Marital Status: 2. Sabianist: Not asked 3. 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 Occupational health exposures: Unknown HABITS 1. Tobacco: History of smoking 2. Drugs: None 3. Alcohol: No alcohol use since 1990 HEALTH SUPERVISION Item/Test Dr. Reyes's records from [facility] IMMUNIZATIONS: 1. Pneumococcal: up to date 2. Influenza: uknown 3. Tetanus: uknown. ADVANCED DIRECTIVES: 1. Living well: Available in 2. POLST: None 3. Code Status: Full code 4. 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 Patient wants his son to be called if there is a loss of consciousness or changes in mental status 5. Donor card: Unknown REVIEW OF SYSTEMS Remarkable for those things stated in the history of present illness and past medical history. ROS Constitutional Denies: Fever, Chills, Sweats. Eyes Denies: Vision Change. Respiratory Denies: SOB w/exertion, Wheezing. Cardiovascular Other (chest pain). Gastrointestinal Denies: Diarrhea. Genitourinary Denies: Frequency. Skin Denies: Lesions. Neurological Denies: Incoordination, Change in speech. Physical Exam Vital Signs / I&Os Vital Signs Date Time Temp Pulse Resp B/P Pulse O2 O2 Flow FiO2 Ox Delivery Rate 01/16 0115 98.1 53 18 100/52 98 Nasal 2.0 Cannula General Appearance Alert, Oriented X3, Cooperative, No acute distress HEENT Atraumatic, EOMI, Moist mucous membranes Lungs Clear to auscultation Neck Supple, No JVD Cardiovascular Normal S1 and S2, irregular regular Abdomen Soft, No tenderness Extremities No clubbing, No edema, Normal pulses Skin No Rashes Neurological Normal speech, Reflexes 2+ and equal Psych/Mental Status Mental status normal, Mood normal LAB Results Laboratory Tests 01/15 01/15 01/15 2240 2240 2240 Chemistry Plasma Sodium (136 - 145 mmol/L) 132 Plasma Potassium (3.5 - 5.1 mmol/L) 4.6 Plasma Chloride (98 - 107 mmol/L) 103 CO2 (Enzymatic) (21 - 32 mmol/L) 24 BUN (7 - 18 mg/dL) 46 Creatinine (0.6 - 1.3 mg/dL) 1.5 Est GFR ( Amer) (mL/min) 56.76 Est GFR (Non-Af Amer) (mL/min) 46.84 Glucose (70 - 110 mg/dL) 121 Plasma Calcium (8.5 - 10.1 mg/dL) 8.8 Plasma Magnesium (1.8 - 2.4 mg/dL) 2.1 Total Bilirubin (0.0 - 1.0 mg/dL) 0.4 AST (15 - 37 U/L) 27 ALT (12 - 78 U/L) 40 Alkaline Phosphatase (46 - 116 U/L) 82 Creatine Kinase (24 - 260 U/L) 209 Troponin (0.00 - 1.5 ng/mL) <0.05 B-Natriuretic Peptide (5 - 100 pg/ml) 111 Total Protein (6.4 - 8.2 g/dL) 7.7 Albumin (3.3 - 5.0 g/dL) 3.8 Amylase (25 - 115 U/L) 54 Lipase (73 - 393 U/L) 350 Hematology WBC (4.5 - 11.5 K/uL) 6.7 RBC (4.50 - 5.90 M/uL) 5.01 Hgb (13.5 - 17.5 gm/dL) 14.7 Hct (41.0 - 53.0 %) 44.6 MCV (80 - 100 fL) 89 MCH (26 - 34 pg) 29 RDW (11.6 - 14.8 %) 13.4 Gran % 63.1 Lymph % (Auto) (25 - 40 %) 31.0 [place] % (Auto) (3 - 14 %) 5.9 Plt Count, EDTA (150 - 400 K/uL) 153 PUBS MCHC (31 - 37 g/dL) 33 Imaging EKG: Normal sinus rhythm. Normal P waves. RBBB. Non-specific ST segment / T wave abnormalities. EKG unchanged when compared with prior EKG. Chest X-ray: No acute disease. (Large hiatal hernia). Views: AP (portable). Assessment and Plan Problem List 1. Unstable angina pectoris Plan 87-year-old with atypical chest pain admission to acute care for observation Patient was given nitroglycerin EEG which abated the pain. Follow-up H&H in a.m. Following cardiac enzymes throughout the morning and into the afternoon Patient is brisk for coronary disease secondary to previous record a CABG. Pain control is available if needed. Consider Lexiscan nuclear stress test and nuclear image; after ruling out. 2. Chest pain, rule out acute myocardial infarction Plan Here for rule out of ischemic heart disease Following telemetry Cardiac enzymes serial panel 325 mg aspirin daily Blood pressure control. Follow-up with primary care provider may need to see code enforcement officer as an outpatient Nuclear stress test ordered 3. HLD (hyperlipidemia) Plan History of hyperlipidemia. Patient is on simvastatin 40 mg daily. Continue with Lipitor 40 mg daily During lipid profile from this morning 4. HTN (hypertension) Plan Blood pressure appears to be well controlled on single agent JESICA inhibitor. We'll continue with both including the nitroglycerin. 5. BPH (benign prostatic hyperplasia) Plan Patient is followed by Dr. Magdaleno for urological concerns. Continue the finasteride as discussed. He will need follow-up with Dr. Magadleno discharged 6. Hypothyroid Plan History of hypothyroid. Continue with Synthroid 50 g daily. Recheck thyroid panel in a.m. labs. Current status: Fair Anticipated discharge date: 24 hours Anticipated discharge placement: Home with home health Patient care time: Time spent in chart review, patient interview, physical exam, CPOE, and care documentation: 70 minutes Visit to patient today: 2 Complexity of care: Mild E&M Codes Admission: Obsv-Comp/High/[id number]
--- NOTE | 2017-01-16 02:59 | Progress Note ---
Subjective General ADVANCED CARE PLAN History of Present Illness 87-year-old white male with a significant past medical history of CAD (4 Vsl CABG 2000 and angioplasty 2000), hypertension, hyperlipidemia, BPH who presented to [facility] emergency department on the day of admission secondary to complaints of chest pain.. Patient reported of initial pain in the chest nearly 3 hours prior to his arrival to the ED A discussion was undertaken with the patient regarding previous advance care arrangements/decisions. The following advanced directives were noted by the patient and discussed with me at the time of admission. ADVANCED DIRECTIVES: 1. Living well: on record. 2. POLST: one 3. CODE STATUS: Full 4. Durable Power Clinical Rn Manager [facility] care: None posted; documents state that his son is to be called next in line, if he is unable to make decissions. 5. Donor card: unknown. The patient has expressed interest in pursuing full resuscitation at this time. He has opted to pursue intubation/mechanical ventilation, CPR, electrical cardioversion, or life-sustaining efforts involving drugs at the time of cardiopulmonary arrest. The patient's wishes were documented in the chart and orders regarding the patient's wishes entered into the [employer] CPOE system. The "Advance Care Plan Document" was not distributed to patient to discuss with his family. Greater than 15 minutes was spent in performing the above tasks and documentation of the patient's advanced care plan.
--- NOTE | 2017-01-16 02:59 | Progress Note ---
Subjective General ADVANCED CARE PLAN History of Present Illness 87-year-old white male with a significant past medical history of CAD (4 Vsl CABG 2000 and angioplasty 2000), hypertension, hyperlipidemia, BPH who presented to [facility] emergency department on the day of admission secondary to complaints of chest pain.. Patient reported of initial pain in the chest nearly 3 hours prior to his arrival to the ED A discussion was undertaken with the patient regarding previous advance care arrangements/decisions. The following advanced directives were noted by the patient and discussed with me at the time of admission. ADVANCED DIRECTIVES: 1. Living well: on record. 2. POLST: one 3. CODE STATUS: Full 4. Durable Power Credit Card Control Clerk [facility] care: None posted; documents state that his son is to be called next in line, if he is unable to make decissions. 5. Donor card: unknown. The patient has expressed interest in pursuing full resuscitation at this time. He has opted to pursue intubation/mechanical ventilation, CPR, electrical cardioversion, or life-sustaining efforts involving drugs at the time of cardiopulmonary arrest. The patient's wishes were documented in the chart and orders regarding the patient's wishes entered into the [employer] CPOE system. The "Advance Care Plan Document" was not distributed to patient to discuss with his family. Greater than 15 minutes was spent in performing the above tasks and documentation of the patient's advanced care plan.
[2017-01-16 07:22] VITALS: BP 103/59
--- NOTE | 2017-01-16 07:32 | Progress Note ---
Subjective General Note Date: January 16, 2017 Admission Date: January 15, 2017 Hospital Day: 2 PCP: Rd Prather M.D. Status: Observation, ACU Advanced Directive: FULL CODE Room: 209-A Admission History: The patient is a 87-year-old white male with a significant past medical history of coronary artery disease status post CABG status post angioplasty, hypertension, hyperlipidemia, BPH, who presented to [facility] emergency department on the day of admission secondary to complaints of chest pain. [facility] ER evaluation was consistent with chest pain rule out ACS. Secondary to the above, the patient was admitted by Robe Adams M.D. for further evaluation and treatment. For other history present illness, past medical history, family history, social history, review of systems, and admission physical examination please see the patient's history and physical examination and ER visit note in the patient's medical record. Subjective: The patient states she is doing well. He has experienced no chest pain since admission. No complaints of shortness of breath, palpitations, nausea, vomiting , or diaphoresis. Patient requests: None Medications and Allergies Medications Current Medications Sig/[place] Start time Last Medication Dose Route Stop Time Status Admin Atorvastatin Calcium 40 MG QPM 01/16 1800 AC PO Aspirin 325 MG QAM 01/16 0900 AC PO Enoxaparin Sodium 40 MG QAM 01/16 0900 AC SC Finasteride 5 MG DAILY 01/16 0900 AC PO Lisinopril 20 MG DAILY 01/16 0900 AC PO Levothyroxine Sodium 50 MCG DAILY@0600 01/16 0600 AC 01/16 PO 0537 Nitroglycerin 0.5 GM Q6HR 01/16 0600 AC TOP Famotidine 20 MG DAILY 01/16 0300 AC 01/16 PO 0537 Ondansetron HCl 4 MG Q6H PRN 01/16 0115 AC IV Acetaminophen 650 MG Q6H PRN 01/16 0100 AC PO Nitroglycerin 0.4 MG Q5M PRN 01/16 0100 AC SL Sodium Chloride 1,000 ML ASDIRECTED 01/16 0100 AC 01/16 IV 0248 Al Hydrox/Mg Hydrox/ 15 ML Q1H PRN 01/16 0015 AC Simethicone PO Atropine Sulfate 0.5 MG Q3MIN PRN 01/16 0015 AC IV Lidocaine HCl See Dose ONCE PRN 01/16 001 AC Insts (1) IV Magnesium Hydroxide 10 ML DAILY PRN 01/16 15 AC PO Morphine Sulfate 2 MG Q3M PRN 01/16 15 AC IV Dose Instructions: (1)Lidocaine HCl: 1.5 MG/KG Allergies Coded Allergies: Quinine (Severe, 02/28/14) Reconcile Medications Scheduled Medications Aspirin (Aspirin Adult Low Dose) 81 MG TAB 81 MG PO DAILY (Reported) Finasteride (Finasteride 5 MG) 5 MG TAB 5 MG PO DAILY (Reported) Levothyroxine Sodium (Synthroid 50 Mcg) 50 MCG TAB 50 MCG PO DAILY (Reported) Lisinopril (Lisinopril 10 MG) 10 MG TAB 20 MG PO DAILY (Reported) Omeprazole (Prilosec) 20 MG CAP 20 MG PO BID (Reported) Simvastatin - High Dose (Simvastatin) 40 MG TAB 40 MG PO DAILY (Reported) Scheduled PRN Medications Niacin (Niacin ER 500 MG) 500 MG TAB 500 MG PO QHS PRN FOR PAIN (Reported) Physical Exam Vital Signs / I&Os Vital Signs Date Time Temp Pulse Resp B/P Pulse O2 O2 Flow FiO2 Ox Delivery Rate 01/16 0722 98.1 60 19 103/59 98 Nasal 2.0 Cannula 01/16 0554 2.0 01/16 0220 2.0 01/16 0115 98.1 53 18 100/52 98 Nasal 2.0 Cannula General Appearance Alert, Oriented X3, Cooperative, No acute distress Lungs Clear to auscultation, Normal air movement Cardiovascular Regular rate and rhythm, Normal S1 and S2 Abdomen Normal bowel sounds, Soft, No tenderness Extremities No cyanosis, No clubbing, No edema Neurological Cranial nerves intact, Strength 5/5 x4 ext's, No lateralizing signs Psych/Mental Status Mental status normal, Mood normal LAB Results Laboratory Tests 01/16 01/16 01/16 01/15 01/15 0530 0530 0530 2240 2240 Chemistry Plasma Sodium (136 - 145 mmol/L) 138 Plasma Potassium (3.5 - 5.1 mmol/L) 4.2 Plasma Chloride (98 - 107 mmol/L) 108 CO2 (Enzymatic) (21 - 32 mmol/L) 25 BUN (7 - 18 mg/dL) 45 Creatinine (0.6 - 1.3 mg/dL) 1.4 Est GFR ( Amer) (mL/min) >60 Est GFR (Non-Af Amer) (mL/min) 50.72 Glucose (70 - 110 mg/dL) 108 Plasma Calcium (8.5 - 10.1 mg/dL) 8.2 Plasma Magnesium (1.8 - 2.4 mg/dL) 2.0 Total Bilirubin (0.0 - 1.0 mg/dL) 0.3 AST (15 - 37 U/L) 24 ALT (12 - 78 U/L) 31 Alkaline Phosphatase (46 - 116 U/L) 62 Creatine Kinase (24 - 260 U/L) 153 Troponin (0.00 - 1.5 ng/mL) 0.15 B-Natriuretic Peptide (5 - 100 pg/ml) 111 Total Protein (6.4 - 8.2 g/dL) 6.1 Albumin (3.3 - 5.0 g/dL) 3.1 Triglycerides (30 - 200 mg/dL) 128 Cholesterol (140 - 200 mg/dL) 137 LDL Cholesterol, Calc (mg/dL) 75 HDL Cholesterol (32 - 96 mg/dL) 37 LDL/HDL Ratio 2.0 Cholesterol/HDL Ratio 3.7 Coronary Risk Interp (0.4 - 1.0) 0.7 Amylase (25 - 115 U/L) 54 Lipase (73 - 393 U/L) 350 TSH 3rd Generation (0.30 - 3.74 uIU/mL) 6.566 Hematology WBC (4.5 - 11.5 K/uL) 4.1 RBC (4.50 - 5.90 M/uL) 3.98 Hgb (13.5 - 17.5 gm/dL) 11.8 Hct (41.0 - 53.0 %) 35.8 MCV (80 - 100 fL) 90 MCH (26 - 34 pg) 30 RDW (11.6 - 14.8 %) 13.6 Gran % 57.9 Lymph % (Auto) (25 - 40 %) 35.3 [place] % (Auto) (3 - 14 %) 6.8 Plt Count, EDTA (150 - 400 K/uL) 109 PUBS MCHC (31 - 37 g/dL) 33 01/15 2240 Chemistry Plasma Sodium (136 - 145 mmol/L) 132 Plasma Potassium (3.5 - 5.1 mmol/L) 4.6 Plasma Chloride (98 - 107 mmol/L) 103 CO2 (Enzymatic) (21 - 32 mmol/L) 24 BUN (7 - 18 mg/dL) 46 Creatinine (0.6 - 1.3 mg/dL) 1.5 Est GFR ( Amer) (mL/min) 56.76 Est GFR (Non-Af Amer) (mL/min) 46.84 Glucose (70 - 110 mg/dL) 121 Plasma Calcium (8.5 - 10.1 mg/dL) 8.8 Plasma Magnesium (1.8 - 2.4 mg/dL) 2.1 Total Bilirubin (0.0 - 1.0 mg/dL) 0.4 AST (15 - 37 U/L) 27 ALT (12 - 78 U/L) 40 Alkaline Phosphatase (46 - 116 U/L) 82 Creatine Kinase (24 - 260 U/L) 209 Troponin (0.00 - 1.5 ng/mL) <0.05 Total Protein (6.4 - 8.2 g/dL) 7.7 Albumin (3.3 - 5.0 g/dL) 3.8 Hematology WBC (4.5 - 11.5 K/uL) 6.7 RBC (4.50 - 5.90 M/uL) 5.01 Hgb (13.5 - 17.5 gm/dL) 14.7 Hct (41.0 - 53.0 %) 44.6 MCV (80 - 100 fL) 89 MCH (26 - 34 pg) 29 RDW (11.6 - 14.8 %) 13.4 Gran % 63.1 Lymph % (Auto) (25 - 40 %) 31.0 [place] % (Auto) (3 - 14 %) 5.9 Plt Count, EDTA (150 - 400 K/uL) 153 PUBS MCHC (31 - 37 g/dL) 33 Assessment and Plan Problem List 1. Chest pain, rule out acute myocardial infarction Plan -No chest pain since admission -Cardiac enzymes, EKG unremarkable -Await results of Lexiscan-Cardiolite stress test, if negative discharge to home 2. HLD (hyperlipidemia) Plan -Stable -Continue Lipitor 40 mg by mouth daily -Lipid profile shows total cholesterol 137, LDL 75, HDL 37, triglycerides 128. -Low-cholesterol/low salt diet on discharge 3. HTN (hypertension) Plan -Blood pressure well controlled. -BP 112/49 mmHg -Continue present therapy -Low-salt diet on discharge 4. BPH (benign prostatic hyperplasia) Plan -Not problematic -No further evaluation 5. Hypothyroid Plan -Patient with history of hypothyroidism -TSH slightly elevated -Increase Synthroid to 0.075 mg by mouth daily -Outpatient follow up with PCP Current status: Fair, improved Anticipated discharge date: Today Anticipated discharge placement: Home Patient care time: Time in chart review, patient interview, physical exam, CPOE, and care documentation: 25 mins Visit to patient today: 2 Complexity of care: Moderate DVT prophylaxis: Lovenox E&M Codes Rounding: Obsv-Comp/Moderate/[id number]
--- NOTE | 2017-01-16 07:34 | Discharge Summary ---
Discharge Summary Report Admit Date 01/15/17 Discharge Date 01/16/17 Admission Diagnosis 1. Chest pain rule out ACS Discharge Diagnosis 1. Chest pain-ACS ruled out Brief History The patient is a 87-year-old white male with a significant past medical history of coronary artery disease status post CABG status post angioplasty, hypertension, hyperlipidemia, BPH, who presented to [facility] emergency department on the day of admission secondary to complaints of chest pain. [facility] ER evaluation was consistent with chest pain rule out ACS. Secondary to the above, the patient was admitted by Robe Adams M.D. for further evaluation and treatment. For other history present illness, past medical history, family history, social history, review of systems, and admission physical examination please see the patient's history and physical examination and ER visit note in the patient's medical record. Hospital Course The following problems and their management were noted during the patient's hospitalization: 1. Chest pain-ACS ruled out The patient was admitted with history of chest pain-R/O ACS. Serial troponin and EKG inconsistent with myocardial infarction/ischemia. Lexiscan-Cardiolite stress test showed no evidence of ischemia. Patient discharged home by Dr Adams to follow up with PCP. See discharge instructions. Lab/Imaging Laboratory Tests 01/16 01/16 01/16 01/15 01/15 0530 0530 0530 2240 2240 Chemistry Plasma Sodium (136 - 145 mmol/L) 138 Plasma Potassium (3.5 - 5.1 mmol/L) 4.2 Plasma Chloride (98 - 107 mmol/L) 108 CO2 (Enzymatic) (21 - 32 mmol/L) 25 BUN (7 - 18 mg/dL) 45 Creatinine (0.6 - 1.3 mg/dL) 1.4 Est GFR ( Amer) (mL/min) >60 Est GFR (Non-Af Amer) (mL/min) 50.72 Glucose (70 - 110 mg/dL) 108 Plasma Calcium (8.5 - 10.1 mg/dL) 8.2 Plasma Magnesium (1.8 - 2.4 mg/dL) 2.0 Total Bilirubin (0.0 - 1.0 mg/dL) 0.3 AST (15 - 37 U/L) 24 ALT (12 - 78 U/L) 31 Alkaline Phosphatase (46 - 116 U/L) 62 Creatine Kinase (24 - 260 U/L) 153 Troponin (0.00 - 1.5 ng/mL) 0.15 B-Natriuretic Peptide (5 - 100 pg/ml) 111 Total Protein (6.4 - 8.2 g/dL) 6.1 Albumin (3.3 - 5.0 g/dL) 3.1 Triglycerides (30 - 200 mg/dL) 128 Cholesterol (140 - 200 mg/dL) 137 LDL Cholesterol, Calc (mg/dL) 75 HDL Cholesterol (32 - 96 mg/dL) 37 LDL/HDL Ratio 2.0 Cholesterol/HDL Ratio 3.7 Coronary Risk Interp (0.4 - 1.0) 0.7 Amylase (25 - 115 U/L) 54 Lipase (73 - 393 U/L) 350 TSH 3rd Generation (0.30 - 3.74 uIU/mL) 6.566 Hematology WBC (4.5 - 11.5 K/uL) 4.1 RBC (4.50 - 5.90 M/uL) 3.98 Hgb (13.5 - 17.5 gm/dL) 11.8 Hct (41.0 - 53.0 %) 35.8 MCV (80 - 100 fL) 90 MCH (26 - 34 pg) 30 RDW (11.6 - 14.8 %) 13.6 Gran % 57.9 Lymph % (Auto) (25 - 40 %) 35.3 [place] % (Auto) (3 - 14 %) 6.8 Plt Count, EDTA (150 - 400 K/uL) 109 PUBS MCHC (31 - 37 g/dL) 33 /18 2240 Chemistry Plasma Sodium (136 - 145 mmol/L) 132 Plasma Potassium (3.5 - 5.1 mmol/L) 4.6 Plasma Chloride (98 - 107 mmol/L) 103 CO2 (Enzymatic) (21 - 32 mmol/L) 24 BUN (7 - 18 mg/dL) 46 Creatinine (0.6 - 1.3 mg/dL) 1.5 Est GFR ( Amer) (mL/min) 56.76 Est GFR (Non-Af Amer) (mL/min) 46.84 Glucose (70 - 110 mg/dL) 121 Plasma Calcium (8.5 - 10.1 mg/dL) 8.8 Plasma Magnesium (1.8 - 2.4 mg/dL) 2.1 Total Bilirubin (0.0 - 1.0 mg/dL) 0.4 AST (15 - 37 U/L) 27 ALT (12 - 78 U/L) 40 Alkaline Phosphatase (46 - 116 U/L) 82 Creatine Kinase (24 - 260 U/L) 209 Troponin (0.00 - 1.5 ng/mL) <0.05 Total Protein (6.4 - 8.2 g/dL) 7.7 Albumin (3.3 - 5.0 g/dL) 3.8 Hematology WBC (4.5 - 11.5 K/uL) 6.7 RBC (4.50 - 5.90 M/uL) 5.01 Hgb (13.5 - 17.5 gm/dL) 14.7 Hct (41.0 - 53.0 %) 44.6 MCV (80 - 100 fL) 89 MCH (26 - 34 pg) 29 RDW (11.6 - 14.8 %) 13.4 Gran % 63.1 Lymph % (Auto) (25 - 40 %) 31.0 [place] % (Auto) (3 - 14 %) 5.9 Plt Count, EDTA (150 - 400 K/uL) 153 PUBS MCHC (31 - 37 g/dL) 33 Discharge Instructions/Meds For other recommendations regarding discharge diet, activity, followup, and discharge medications please see the patient's discharge instructions. Discharge condition: Fair, improved Greater than 30 min. was spent in the patient's discharge preparation including discharge interview and physical examination, progress note, discharge instructions, and discharge summary The patient was interviewed and examined on the day of discharge. E&M Codes Discharge: Observation - All/[id number]
--- NOTE | 2017-01-16 09:49 | ED MAR SUMMARY ---
..... Medication Administration Record [facility] [address] [place] [address] Patient: BLU STARK Visit ID: [id number] 87y, M Weight: 74.8 kg Height/Length: 65 in BMI: 27.5 ALLERGIES: Quinine Given 22:36 01/15/2017 Jhon Langston RSimonN. Medication Administered: ASPIRIN [PO], Dose: 325 mg Tablets PO. Medication Ordered: Aspirin PO 325 mg (NOW). Given 22:53 01/15/2017 Jhon Langston, R.N. Medication Administered: NITROGLYCERIN [SL], Dose: 0.4 mg Tablets SL. Medication Ordered: NitroGLYCERIN SL 0.4 mg (x3 PRN Chest Pain). Given 00:13 01/16/2017 Jhon Langston, R.N. Medication Administered: NITROGLYCERIN PASTE [TOPICAL], Dose: 0.5 in. Paste Topical. Medication Ordered: NitroGLYCERIN Paste Topical 0.5 in. (NOW).
--- NOTE | 2017-01-16 09:49 | ED MAR SUMMARY ---
..... Medication Administration Record [facility] [address] [place] [address] Patient: BLU STARK Visit ID: [id number] 87y, M Weight: 74.8 kg Height/Length: 65 in BMI: 27.5 ALLERGIES: Quinine Given 22:36 01/15/2017 Jhon Langston RSimonN. Medication Administered: ASPIRIN [PO], Dose: 325 mg Tablets PO. Medication Ordered: Aspirin PO 325 mg (NOW). Given 22:53 01/15/2017 Jhon Langston, R.N. Medication Administered: NITROGLYCERIN [SL], Dose: 0.4 mg Tablets SL. Medication Ordered: NitroGLYCERIN SL 0.4 mg (x3 PRN Chest Pain). Given 00:13 01/16/2017 Jhon Langston, R.N. Medication Administered: NITROGLYCERIN PASTE [TOPICAL], Dose: 0.5 in. Paste Topical. Medication Ordered: NitroGLYCERIN Paste Topical 0.5 in. (NOW).
--- NOTE | 2017-01-16 09:49 | ED MED RECONCILIATION SUMMARY ---
Patient: BLU STARK Medication Reconciliation Report [facility] VisitID: [id number] [place] [address] 87y, M Registration Date/Time: 01/15/2017 Weight: 74.8 kg Height/Length: 65 in. BMI: 27.5 ALLERGIES: Quinine The patient's Home Medications are listed below: THE FOLLOWING MEDICATIONS NEED TO BE RECONCILED: Aspirin Oral (81 mg) 1 tablet, daily Finasteride Oral Lisinopril Oral Niacin Oral Omeprazole Oral Simvastatin Oral Synthroid Oral The source(s) of the original Home Medication information: patient The following Medications were given to the patient in the Emergency Department: Aspirin [PO] PO 325 mg, administered: 01/15/2017 10:36:00 PM Nitroglycerin [SL] SL 0.4 mg, administered: 01/15/2017 10:53:00 PM NITROGLYCERIN PASTE [TOPICAL] Topical 0.5 in., administered: 01/16/2017 12:13:00 AM The following Medications were prescribed to the patient: None.
--- NOTE | 2017-01-16 09:49 | ED DISCHARGE INSTRUCTIONS ---
Patient: BLU STARK General Instructions [facility] VisitID: [id number] [address] [place] [address] 87y, M Registration Date/Time: 01/15/2017 Unstable angina .12 lead EKG performed. (Electronically signed by Yamil Laughlin MD 01/16/2017 9:49)
--- NOTE | 2017-01-16 09:49 | ED DISCHARGE INSTRUCTIONS ---
Patient: BLU STARK General Instructions [facility] VisitID: [id number] [address] [place] [address] 87y, M Registration Date/Time: 01/15/2017 Unstable angina .12 lead EKG performed. (Electronically signed by Yamil Laughlin MD 01/16/2017 9:49)
--- NOTE | 2017-01-16 09:49 | ED MED RECONCILIATION SUMMARY ---
Patient: BLU STARK Medication Reconciliation Report [facility] VisitID: [id number] [place] [address] 87y, M Registration Date/Time: 01/15/2017 Weight: 74.8 kg Height/Length: 65 in. BMI: 27.5 ALLERGIES: Quinine The patient's Home Medications are listed below: THE FOLLOWING MEDICATIONS NEED TO BE RECONCILED: Aspirin Oral (81 mg) 1 tablet, daily Finasteride Oral Lisinopril Oral Niacin Oral Omeprazole Oral Simvastatin Oral Synthroid Oral The source(s) of the original Home Medication information: patient The following Medications were given to the patient in the Emergency Department: Aspirin [PO] PO 325 mg, administered: 01/15/2017 10:36:00 PM Nitroglycerin [SL] SL 0.4 mg, administered: 01/15/2017 10:53:00 PM NITROGLYCERIN PASTE [TOPICAL] Topical 0.5 in., administered: 01/16/2017 12:13:00 AM The following Medications were prescribed to the patient: None.
[2017-01-16 10:23] VITALS: BP 112/49
[2017-01-16] MEDS ORDERED: LISINOPRIL10 MG PO (12:36)
[2017-01-16] MEDS ORDERED: SIMVASTATIN40 MG PO (12:36)
[2017-01-16] MEDS ORDERED: SYNTHROID50 MCG PO (12:37)
[2017-01-16] MEDS ORDERED: PRILOSEC20 MG PO (12:37)
[2017-01-16] MEDS ORDERED: FINASTERIDE5 MG PO (12:38)
[2017-01-16] MEDS ORDERED: ASPIRIN ADULT L81 M1 PO (12:40)
[2017-01-16] MEDS ORDERED: NIACIN ER500 MG PO (12:41)
[2017-01-16 15:00] VITALS: BP 149/70
[2017-01-16] MEDS ORDERED: SYNTHROID75 MCG PO (18:21)
--- NOTE | 2017-01-16 18:25 | Provider's Discharge Care Plan ---
Problem, Goal, Plan Problem List 1. Unstable angina pectoris Goals: Improve disease control, Probable angina pectoris. Needing follow-up with cardiology. Instructions: Follow up as directed 2. Chest pain, rule out acute myocardial infarction Goals: Diagnostic testing, Improve disease control, Therapeutic intervention Instructions: Follow up as directed, Reduce stress 3. HLD (hyperlipidemia) Goals: Prevent disease progress, Therapeutic intervention Instructions: Take meds as directed 4. HTN (hypertension) Goals: Prevent disease progress Instructions: Take meds as directed 5. BPH (benign prostatic hyperplasia) Goals: Prevent disease progress Instructions: Follow up as directed 6. Hypothyroid Goals: Improved health/wellness, Therapeutic intervention Instructions: increase the Synthroid to 75 g daily. Prescription is been submitted for increasing the dose. Discard the previous dosage of 50 g daily.
--- NOTE | 2017-01-17 07:31 | DIAGNOSTIC IMAGING REPORT ---
PROCEDURE: Single day sestamibi interpretation CLINICAL INDICATION: Chest pain TECHNIQUE: 10 mCi of tech sestamibi was injected at rest. Some time later the patient underwent Lexiscan stress with 30 mCi of tech sestamibi injected 20 seconds after the injection of Lexiscan with SPECT tomography then performed rest and stress images were then compared. COMPARISON: None available FINDINGS: With stress no defects are identified similarly the rest study no defects are apparent LV size and contractility preserved with an ejection fraction of 48% lower limits of normal. sum stress score zero some difference score is sum rest zero t.i.d. and lung heart ratio are normal. LV size is normal at 75 /39 ml IMPRESSION: Normal nuclear stress and rest images with no evidence for ischemia. Ejection fraction 48% with normal LV size and preserved contractility -this is a low-risk study.
== END 2017-01-16 18:42 | disposition home or self-care (01) ==
LOC: ED SRH 22:28 → TRANS SRH 23:59 → ACUTE2 SRH 01-16 01:30
PROVIDERS: ADMIT Emergency Medicine
PROC: 3E073KZ Introduction of Other Diagnostic Substance into Coronary Artery, Percutaneous Approach (ICD-10-PCS; principal; 2017-01-16)
PROC: 4A02XM4 Measurement of Cardiac Total Activity, External Approach (ICD-10-PCS; principal; 2017-01-16)
DX: R07.9 Chest pain, unspecified (principal); I25.10 Atherosclerotic heart disease of native coronary artery without angina pectoris; I10 Essential (primary) hypertension; E78.5 Hyperlipidemia, unspecified; Z95.1 Presence of aortocoronary bypass graft; Z95.5 Presence of coronary angioplasty implant and graft
CPT/HCPCS: 29230; 29251; 85241; 90074; 90100; 90616; 91320; 92235; 92530; 92610; 92690; 92720; 93140; 95059